=== PATIENT | female | born 1990 | race Two or more races ===

== ENCOUNTER 2016-09-08 19:33 | Emergency (ER) | payer MEDICAID ==
[~2016-09-08] VITALS: Ht 160 cm; Wt 103.0 kg
[~2016-09-08 19:33] MED LIST: ALBUTEROL SULF8.5 GM INH; AZITHROMYCIN250 MG PO; CIPROFLOXACIN500 M2 ORAL; DIPHENHYDRAMINE25 M1 ORAL; DOXYCYCLINE MO100 MG ORAL; KEFLEX500 MG ORAL; MACROBID100 MG ORAL; NKM; ONDANSETRON ODT4 MG ORAL; PREDNISONE20 MG ORAL; PROMETHAZINE-C118 M1 ORAL; PROMETHAZINE-D118 ML PO; ZITHROMAX250 MG ORAL; ZOFRAN4 MG ORAL
[2016-09-08 20:51] LABS: APPEARANCE,URINE CLEAR; KETONES,URINE NEGATIVE (NEGATIVE); LEUKOCYTE ESTERASE ,URINE 3+ (NEGATIVE); NITRITE,URINE NEGATIVE (NEGATIVE); PH,URINE 8 (4.5-8.0); PROTEIN,URINE NEGATIVE (NEGATIVE); UROBILINOGEN,URINE NORMAL MG/DL (0.0-1.0)
[2016-09-08 21:02] LABS: AMORPHOUS SEDIMENT,UR FEW /LPF; BACTERIA,URINE FEW /HPF; SQUAMOUS EPITHELIAL CELL,UR MODERATE /LPF (NONE/OCC)
[2016-09-08 21:30] VITALS: BP 124/76
[2016-09-08] MEDS ORDERED: FLUCONAZOLE150 MG ORAL (21:31)
[2016-09-08 21:35] VITALS: BP 124/76
--- NOTE | 2016-09-08 23:02 | Emergency Room Report ---
History of Present Illness General Chief Complaint: Female Urogenital Problems Source: Patient Present Illness HPI The pt is a 26 yo F presenting for 3 days of vaginal irritation. The pt describes sensation as itching and burning. The pt has had multiple yeast infections in the past and this feels the same. The pt used monostat at home without relief. THe pt describes pain as a 7/10 burning to the vaginal area and does not radiate. Pt denies dysuria, vaginal DC, flank pain, abd pain, N, V, F, chills Allergies: Coded Allergies: No Known Allergies (Unverified , 02/02/13) Patient History Past Medical History: see triage record Pertinent Family History: none Last Menstrual Period: 08/11/2016 Now: No : 3 Para: 2 Reviewed Nursing Documentation: PMH: Agreed, PSxH: Agreed Nursing Documentation-PMH Past Medical History: No Stated History Review of Systems All Other Systems: negative except mentioned in HPI Physical Exam Vital Signs Date Time Temp Pulse Resp B/P Pulse Ox O2 Delivery O2 Flow Rate FiO2 09/08/16 19:43 97.9 80 16 120/80 100 Room Air Sp02 EP Interpretation: reviewed, normal General Appearance: no apparent distress, alert, GCS 15, non-toxic Head: normocephalic, atraumatic Eyes: bilateral eye PERRL, bilateral eye normal inspection ENT: hearing grossly normal, normal pharynx, no angioedema, normal voice Neck: full range of motion, supple/symm/no masses Respiratory: chest non-tender, lungs clear, normal breath sounds, speaking full sentences Gastrointestinal: normal bowel sounds, non tender, soft, non-distended, no guarding, no rebound Genitourinary: normal inspection, no CVA tenderness Neurologic: normal inspection, alert, oriented x3, responsive, sensory intact, normal gait Psychiatric: judgement/insight normal, memory normal, mood/affect normal, no suicidal/homicidal ideation Skin: normal color, no rash, warm/dry, well hydrated Lymphatic: no adenopathy Medical Decision Making PA Attestation Dr. Gomez is my supervising physician. Patient management was discussed with my supervising physician Diagnostic Impression: Primary Impression: Vaginal yeast infection ER Course The pt is a 26 yo F presenting for 3 days of vaginal irritation. Differential diagnosis considered but not limited to: UTI, vaginitis, pyelonephritis, pyelonephrosis, PID, ectopic PE: Vitals WNL. NAD. Abdomen: Normal appearance. Non distended. No ecchymosis. Normal BS. Non TTP. No McBurney point tenderness. No guarding. No CVA tenderness UA shows 5+ occult blood consistent with menstruation. 3+ leukocyte esterase. Few bacteria, negative nitrites. Few WBCs Neg preg Due to the recurrent yeast infection, The pt will be placed on fluconazole for one week and needs to FU with PMD as well as OBGYN. ER precautions given Laboratory Tests Test 09/08/16 20:32 Urine Color Pale yellow Urine Appearance Clear Urine pH 8 (4.5-8.0) Urine Specific [place] 1.015 (1.005-1.035) Urine Protein Negative (NEGATIVE) Urine Glucose (UA) Negative (NEGATIVE) Urine Ketones Negative (NEGATIVE) Urine Occult Blood 5+ (NEGATIVE) H Urine Nitrite Negative (NEGATIVE) Urine Bilirubin Negative (NEGATIVE) Urine Urobilinogen Normal MG/DL (0.0-1.0) Urine Leukocyte Esterase 3+ (NEGATIVE) H Urine RBC 10-15 /HPF (0 - 2) H Urine WBC 2-4 /HPF (0 - 2) Urine Squamous Epithelial Cells Moderate /LPF (NONE/OCC) H Urine Amorphous Sediment Few /LPF (NONE) H Urine Bacteria Few /HPF (NONE) Urine HCG, Qualitative Negative Lab Results Impression UA shows 5+ occult blood consistent with menstruation. 3+ leukocyte esterase. Few bacteria, negative nitrites. Few WBCs Last Vital Signs Date Time Temp Pulse Resp B/P Pulse Ox O2 Delivery O2 Flow Rate FiO2 09/08/16 21:35 97.9 16 124/76 100 Room Air 09/08/16 21:30 72 Status: improved Disposition: HOME, SELF-CARE Condition: Improved Scripts Fluconazole (FLUCONAZOLE) 150 Mg Tablet 150 MG ORAL DAILY, #7 TAB 0 Refills Prov: SHIRA ROSS P.A. 09/08/16 Patient Instructions: Vaginal Yeast Infection, Adult Additional Instructions: I discussed my findings with the patient. All questions and concerns have been answered. Treatment and medication compliance have been addressed. I advised the patient that they need to follow up with PMD in 3-5 days. Return to ED if symptoms worsen, new symptoms arise, or if needed for any reason. Patient verbalized understanding of discharge instructions. SHIRA ROSS Sep 08, 2016 23:02
== END 2016-09-08 21:35 | disposition home or self-care (01) ==
LOC: EMR 19:58
DX: B37.9 Candidiasis, unspecified (principal)
CPT/HCPCS: 81003; 81025; 99283

== ENCOUNTER 2017-02-23 20:01 | Emergency (ER) | payer MEDICAID ==
[~2017-02-23] VITALS: Ht 157.5 cm; Wt 100.7 kg
[~2017-02-23 20:01] MED LIST changes: +FLUCONAZOLE150 MG ORAL
[2017-02-23 20:51] VITALS: BP 107/72
[2017-02-23 21:42] LABS: APPEARANCE,URINE CLEAR; KETONES,URINE NEGATIVE (NEGATIVE); LEUKOCYTE ESTERASE ,URINE 3+ (NEGATIVE); NITRITE,URINE NEGATIVE (NEGATIVE); PH,URINE 6.5 (4.5-8.0); PROTEIN,URINE NEGATIVE (NEGATIVE); UROBILINOGEN,URINE 1 MG/DL (0.0-1.0)
[2017-02-23 21:49] LABS: BACTERIA,URINE FEW /HPF; SQUAMOUS EPITHELIAL CELL,UR FEW /LPF (NONE/OCC)
[2017-02-23] MEDS ORDERED: FLUCONAZOLE100 MG ORAL (22:00)
[2017-02-23] MEDS ORDERED: NITROFURANTOIN100 M2 ORAL (22:00)
[2017-02-23] MEDS ORDERED: Fluconazole 100mg tab ORAL ONE (22:00)
--- NOTE | 2017-02-23 22:00 | Emergency Room Report ---
History of Present Illness General Chief Complaint: Female Urogenital Problems Source: Patient Present Illness HPI 26 YO Female presents to the ED C/O presents to the ED c/o vaginal irritation/ discomfort and malodor, x 3 days. Pt. has hx of yeast infection and bv in the past. denies recent abx use. Denies recent unprotected intercourse, , malodor, swollen palpable lymph nodes, abdominal pain, nausea, vomiting, fevers , chills , rashes , dysuria, hematuria. Denies CP, Palpitations, LOC, AMS, dizziness, Changes in Vision, Sensation, paresthesias, or a sudden severe headache. Allergies: Coded Allergies: No Known Allergies (Unverified , 02/02/13) Patient History Past Medical History: see triage record Past Surgical History: none Pertinent Family History: none Last Menstrual Period: January 13, 2017 Now: No : 3 Para: 2 Reviewed Nursing Documentation: PMH: Agreed, PSxH: Agreed Nursing Documentation-PMH Past Medical History: No Stated History Review of Systems All Other Systems: negative except mentioned in HPI Physical Exam Vital Signs Date Time Temp Pulse Resp B/P (MAP) Pulse Ox O2 Delivery O2 Flow Rate FiO2 02/23/17 20:22 98.4 90 18 107/72 98 Room Air Sp02 EP Interpretation: reviewed, normal General Appearance: no apparent distress, alert, GCS 15, non-toxic Head: normocephalic, atraumatic Eyes: bilateral eye normal inspection, bilateral eye PERRL ENT: hearing grossly normal, normal voice Neck: full range of motion Respiratory: lungs clear, normal breath sounds, speaking full sentences Cardiovascular #1: regular rate, rhythm Gastrointestinal: normal bowel sounds, non tender, soft, no guarding, no rebound Rectal: deferred Genitourinary: normal inspection, no CVA tenderness, adnexa normal, cervix normal, ext genitalia/vag normal, os closed, other - negative CMT, yellow/white milky d/c noted. Musculoskeletal: back normal, gait/station normal, normal range of motion, non- tender Neurologic: alert, oriented x3, responsive, motor strength/tone normal, sensory intact, speech normal Psychiatric: judgement/insight normal, memory normal, mood/affect normal Skin: normal color, no rash, warm/dry, well hydrated Lymphatic: no adenopathy Medical Decision Making PA Attestation Dr. Dominique is my supervising Physician whom patient management has been discussed with. Diagnostic Impression: Primary Impression: UTI Additional Impressions: Vaginitis Qualified Codes: N76.0 - Acute vaginitis Bacterial vaginosis ER Course P26 YO Female presents to the ED C/O presents to the ED c/o vaginal irritation/ discomfort and malodor, x 3 days. Pt. has hx of yeast infection and bv in the past. denies recent abx use. Denies recent unprotected intercourse, , malodor, swollen palpable lymph nodes, abdominal pain, nausea, vomiting, fevers , chills , rashes , dysuria, hematuria. Denies CP, Palpitations, LOC, AMS, dizziness, Changes in Vision, Sensation, paresthesias, or a sudden severe headache. Ddx considered but are not limited to UTi , Pyelo, STI, Stone, Cystitis, vaginal laceration, vaginitis. Vital signs: are WNL, pt. is afebrile H& PE are most consistent with: vaginitis ORDERS: - UA labs are attached : moderate bacteria with elevated leukocytes indicating UTI. - WET MOUNT: few clue, few yeast, few bacteria, no trich ED INTERVENTIONS: -Diflucan PO DISCHARGE: At this time pt. is stable for d/c to home. Will provide printed patient care instructions, and any necessary prescriptions. Care plan and follow up instructions have been discussed with the patient prior to discharge. Labs Test 02/23/17 20:34 Urine Color Pale yellow Urine Appearance Clear Urine pH 6.5 (4.5-8.0) Urine Specific [place] 1.015 (1.005-1.035) Urine Protein Negative (NEGATIVE) Urine Glucose (UA) Negative (NEGATIVE) Urine Ketones Negative (NEGATIVE) Urine Occult Blood 1+ (NEGATIVE) Urine Nitrite Negative (NEGATIVE) Urine Bilirubin Negative (NEGATIVE) Urine Urobilinogen 1 MG/DL (0.0-1.0) Urine Leukocyte Esterase 3+ (NEGATIVE) Urine RBC 2-4 /HPF (0 - 2) Urine WBC 5-10 /HPF (0 - 2) Urine Squamous Epithelial Cells Few /LPF (NONE/OCC) Urine Bacteria Few /HPF (NONE) Last Vital Signs Date Time Temp Pulse Resp B/P (MAP) Pulse Ox O2 Delivery O2 Flow Rate FiO2 02/23/17 20:22 98.4 90 18 107/72 98 Room Air Disposition: HOME, SELF-CARE Condition: Stable Scripts Metronidazole* (FLAGYL*) 500 Mg Tablet 500 MG ORAL BID for 7 Days, #14 TAB 0 Refills Prov: Daniella Lange 02/23/17 Fluconazole (FLUCONAZOLE) 100 Mg Tablet 100 MG ORAL DAILY, #3 TAB 0 Refills Prov: Daniella Lange 02/23/17 Nitrofurantoin Monohyd/M-Cryst* (MACROBID 100 MG*) 100 Mg Capsule 100 MG ORAL EVERY 12 HOURS for 5 Days, #10 CAP Prov: Daniella Lange 02/23/17 Referrals: NON PHYSICIAN (PCP) Patient Instructions: Vaginitis, Urinary Tract Infection Additional Instructions: Take medications as directed. Follow up with a Primary Care Provider in 3-5 days, even if your symptoms have resolved. --Please review list of primary care clinics, if you do not already have a primary care provider Return sooner to ED if new symptoms occur, or current symptoms become worse. - Please note that this Emergency Department Report was dictated using [employer] room manager technology software, occasionally this can lead to erroneous entry secondary to interpretation by the dictation equipment. Daniella Lange Feb 23, 2017 21:59
[2017-02-23 22:02] VITALS: BP 112/71
[2017-02-23 22:07] VITALS: BP 112/71
[2017-02-23] MEDS ORDERED: METRONIDAZOLE500 MG ORAL (22:27)
[2017-02-25] MEDS ORDERED: METRONIDAZOLE500 MG ORAL (18:17)
== END 2017-02-23 22:07 | disposition home or self-care (01) ==
LOC: EMR 20:40
DX: N39.0 Urinary tract infection, site not specified (principal); N76.0 Acute vaginitis
CPT/HCPCS: 81003; 87210; 99284

== ENCOUNTER 2017-03-11 00:36 | Emergency (ER) | payer MEDICAID ==
[~2017-03-11] VITALS: Ht 157.5 cm; Wt 101.2 kg
[~2017-03-11 00:36] MED LIST changes: +FLUCONAZOLE100 MG ORAL; +METRONIDAZOLE500 MG ORAL; +NITROFURANTOIN100 M2 ORAL
[2017-03-11 00:54] VITALS: BP 119/73
[2017-03-11] MEDS ORDERED: NEXAFED30 MG ORAL (01:07)
[2017-03-11] MEDS ORDERED: IBUPROFEN600 MG ORAL (01:07)
--- NOTE | 2017-03-11 01:08 | Emergency Room Report ---
History of Present Illness General Chief Complaint: Sore Throat Source: Patient Present Illness HPI Is a 26-year-old female with no significant past medical history. She presents with chief complaint of congestion, cough, sore throat, ear pain. Onset yesterday. No nausea no vomiting. Has not take any medicine for pain is 9/10. Worse with swallowing. Worse with blow her nose. Allergies: Coded Allergies: No Known Allergies (Unverified , 02/02/13) Patient History Past Medical History: see triage record, old chart reviewed Past Surgical History: none Pertinent Family History: none Social History: Denies: smoking Last Menstrual Period: 03/02/17 Now: No Immunizations: other Reviewed Nursing Documentation: PMH: Agreed, PSxH: Agreed Nursing Documentation-PMH Past Medical History: No Stated History Review of Systems Eye: Denies: eye pain, blurred vision ENT: Reports: ear pain, nose congestion, throat pain, Denies: throat swelling Respiratory: Reports: cough, Denies: shortness of breath Cardiovascular: Denies: chest pain, palpitations Gastrointestinal: Denies: abdominal pain, diarrhea, nausea, vomiting Musculoskeletal: Denies: back pain, joint pain Skin: Denies: rash Neurological: Denies: headache, numbness Endocrine: Denies: increased thirst, increased urine Hematologic/Lymphatic: Denies: easy bruising All Other Systems: negative except mentioned in HPI Physical Exam Vital Signs Date Time Temp Pulse Resp B/P (MAP) Pulse Ox O2 Delivery O2 Flow Rate FiO2 03/11/17 00:44 97.9 99 16 119/73 98 Room Air vitals normal Sp02 EP Interpretation: reviewed, normal General Appearance: well appearing, no apparent distress, alert Head: normocephalic, atraumatic Eyes: bilateral eye PERRL, bilateral eye EOMI ENT: hearing grossly normal, normal pharynx, uvula midline, tonsillar swelling , other - Bilateral TMs with fluid Neck: full range of motion, supple, no meningismus Respiratory: chest non-tender, lungs clear, normal breath sounds Cardiovascular #1: regular rate, rhythm, no murmur Gastrointestinal: normal bowel sounds, non tender, no mass, no organomegaly, no bruit, non-distended Musculoskeletal: back normal, gait/station normal, normal range of motion Psychiatric: mood/affect normal Skin: warm/dry Medical Decision Making Diagnostic Impression: Primary Impression: Viral upper respiratory infection ER Course Patient with a viral illness. No evidence of peritonsillar abscess, retropharyngeal abscess or Albino angina. No evidence of otitis media. Last Vital Signs Date Time Temp Pulse Resp B/P (MAP) Pulse Ox O2 Delivery O2 Flow Rate FiO2 03/11/17 00:44 97.9 99 16 119/73 98 Room Air Status: improved Disposition: HOME, SELF-CARE Condition: Stable Scripts Ibuprofen* (MOTRIN*) 600 Mg Tablet 600 MG ORAL THREE TIMES A DAY, #30 TAB 0 Refills Prov: WENDI KILGORE M.D. 03/11/17 Pseudoephedrine Hcl* (NEXAFED*) 30 Mg Tablet 60 MG ORAL Q6H Y for congestion, #30 TAB Prov: WENDI KILGORE M.D. 03/11/17 Additional Instructions: Followup with your DrDino in 2-3 days. Return if symptom worsen. Increase fluid. Nathaniel granados. WENDI KILGORE M.D. Mar 11, 2017 01:08
[2017-03-11] MEDS ORDERED: Norco 5mg/325mg tab ORAL ONE (01:15)
[2017-03-11 01:18] VITALS: BP 125/78
== END 2017-03-11 01:19 | disposition home or self-care (01) ==
LOC: EMR 00:55
DX: J98.8 Other specified respiratory disorders (principal)
CPT/HCPCS: 99284

== ENCOUNTER 2017-04-29 00:22 | Emergency (ER) | payer MEDICAID ==
[~2017-04-29] VITALS: Ht 160 cm; Wt 107.5 kg
[~2017-04-29 00:22] MED LIST changes: +IBUPROFEN600 MG ORAL; +NEXAFED30 MG ORAL
[2017-04-29] MEDS ORDERED: NKM (00:42)
[2017-04-29 01:22] LABS: APPEARANCE,URINE CLEAR; KETONES,URINE NEGATIVE (NEGATIVE); NITRITE,URINE NEGATIVE (NEGATIVE); PH,URINE 6 (4.5-8.0); PROTEIN,URINE NEGATIVE (NEGATIVE); UROBILINOGEN,URINE NORMAL MG/DL (0.0-1.0)
[2017-04-29 01:31] LABS: LEUKOCYTE ESTERASE ,URINE 1+ (NEGATIVE)
[2017-04-29 01:32] LABS: RBC,URINE 0-2 /HPF (0 - 2); SQUAMOUS EPITHELIAL CELL,UR MODERATE /LPF (NONE/OCC)
[2017-04-29 01:40] VITALS: BP 148/68
--- NOTE | 2017-04-29 02:55 | Emergency Room Report ---
History of Present Illness General Chief Complaint: Female Urogenital Problems Source: Patient Present Illness HPI Patient presents with vaginal d/c. There is some external burning when she urinates also. The d/c is white. No fevers. She denies DM. She's been treated for yeast in the past. No treatment for this. She is late for her period. Denies abdominal pain. No breast tenderness. Some morning nausea, no vomiting. one miscarriage which went poorly Allergies: Coded Allergies: No Known Allergies (Unverified , 02/02/13) Patient History Past Medical History: see triage record Social History: Denies: smoking Social History Narrative [facility] caregiver Last Menstrual Period: mar 24, 2017 Now: No - see results : 4 - with this Para: 2 Nursing Documentation-PMH Past Medical History: No Stated History Review of Systems All Other Systems: negative except mentioned in HPI Physical Exam Vital Signs Date Time Temp Pulse Resp B/P (MAP) Pulse Ox O2 Delivery O2 Flow Rate FiO2 04/29/17 00:38 98.1 84 16 115/75 100 Room Air Sp02 EP Interpretation: reviewed, normal General Appearance: well appearing, no apparent distress, GCS 15 Head: normocephalic Eyes: bilateral eye normal inspection, bilateral eye PERRL ENT: moist mucus membranes Neck: supple Respiratory: lungs clear, normal breath sounds Cardiovascular #1: regular rate, rhythm Cardiovascular #2: 2+ radial (R) Gastrointestinal: normal inspection, normal bowel sounds, non tender, no mass, non-distended, overweight Genitourinary: adnexa normal, cervix normal - with eversion, os closed, uterus normal, other - white d/c Musculoskeletal: back normal, gait/station normal, normal range of motion Neurologic: alert, oriented x3, grossly normal Psychiatric: mood/affect normal Skin: normal inspection, warm/dry Medical Decision Making Diagnostic Impression: Primary Impression: Vaginal yeast infection Additional Impression: Early stage of ER Course Patient late for period with d/c. Ddx; , yeast, vaginitis, UTI amongst others. Eval with pelvic, w/m, UA and preg. Exam c/w yeast. W/M "neg". UA + preg. No UTI. Discussed findings with patient. Patient stable for outpatient observation and treatment. Laboratory Tests Test 04/29/17 00:45 Urine Color Pale yellow Urine Appearance Clear Urine pH 6 (4.5-8.0) Urine Specific [place] 1.025 (1.005-1.035) Urine Protein Negative (NEGATIVE) Urine Glucose (UA) Negative (NEGATIVE) Urine Ketones Negative (NEGATIVE) Urine Occult Blood Negative (NEGATIVE) Urine Nitrite Negative (NEGATIVE) Urine Bilirubin Negative (NEGATIVE) Urine Urobilinogen Normal MG/DL (0.0-1.0) Urine Leukocyte Esterase 1+ (NEGATIVE) H Urine RBC 0-2 /HPF (0 - 2) Urine WBC 2-4 /HPF (0 - 2) Urine Squamous Epithelial Cells Moderate /LPF (NONE/OCC) H Urine Bacteria None /HPF (NONE) Urine HCG, Qualitative Positive Chlamydia trachomatis RNA Pending Neisseria gonorrhoeae RNA Pending Microbiology Date/Time Source Procedure Growth Status 04/29/17 02:50 Vaginal Wet Prep - Final Complete Last Vital Signs Date Time Temp Pulse Resp B/P (MAP) Pulse Ox O2 Delivery O2 Flow Rate FiO2 04/29/17 03:50 98.0 80 16 136/70 100 Room Air Status: improved Disposition: HOME, SELF-CARE Condition: Improved Scripts Vit #113/Iron/Folate ( CHEWABLE TAB) 1 Each Tab.chew 1 EACH PO DAILY, #30 TAB Prov: Sumeet Armstrong M.D. 04/29/17 Diphenhydramine Hcl* (BENADRYL*) 25 Mg Capsule 25 MG ORAL Q6H Y for Itching, #14 CAP 1 Refill Prov: Sumeet Armstrong M.D. 04/29/17 Clotrimazole (GYNE-LOTRIMIN*) 45 Gm Cream.appl 1 APPLIC VG QHS, #45 GM 0 Refills Prov: Sumeet Armstrong M.D. 04/29/17 Referrals: NON PHYSICIAN (PCP) Sumeet Armstrong M.D. Apr 29, 2017 02:54
[2017-04-29 03:30] VITALS: BP 136/70
[2017-04-29] MEDS ORDERED: GYNE-LOTRIMIN45 GM VG (03:32)
[2017-04-29] MEDS ORDERED: BENADRYL25 MG ORAL (03:32)
[2017-04-29 03:50] VITALS: BP 136/70
== END 2017-04-29 03:50 | disposition home or self-care (01) ==
LOC: EMR 00:25
DX: O98.819 Other maternal infectious and parasitic diseases complicating pregnancy, unspecified trimester (principal); B37.3 Candidiasis of vulva and vagina; N89.8 Other specified noninflammatory disorders of vagina
CPT/HCPCS: 81003; 81025; 87210; 87491; 87590; 99284

== ENCOUNTER 2017-05-05 15:12 | Emergency (ER) | payer MEDICAID ==
[~2017-05-05] VITALS: Ht 160 cm; Wt 72.6 kg
[~2017-05-05 15:12] MED LIST changes: +BENADRYL25 MG ORAL; +GYNE-LOTRIMIN45 GM VG
[2017-05-05 16:07] LABS: APPEARANCE,URINE CLEAR; KETONES,URINE 3+ (NEGATIVE); LEUKOCYTE ESTERASE ,URINE 3+ (NEGATIVE); NITRITE,URINE NEGATIVE (NEGATIVE); PH,URINE 6.5 (4.5-8.0); PROTEIN,URINE NEGATIVE (NEGATIVE); UROBILINOGEN,URINE 1 MG/DL (0.0-1.0)
[2017-05-05 16:26] LABS: SQUAMOUS EPITHELIAL CELL,UR FEW /LPF (NONE/OCC); YEAST,URINE FEW /HPF
[2017-05-05 16:27] LABS: BACTERIA,URINE FEW /HPF; RBC,URINE 0-2 /HPF (0 - 2)
[2017-05-05 17:42] LABS: ANION GAP 10 mmol/L (5-15); CARBON DIOXIDE 26 MMOL/L (21-32); CHLORIDE 103 MMOL/L (98-107); CREATININE 0.6 MG/DL (0.55-1.30); GLOMERULAR FILTRATION RATE > 60 mL/min (>60); POTASSIUM 3.8 MMOL/L (3.5-5.1); SODIUM 139 MMOL/L (136-145)
[2017-05-05 17:45] VITALS: BP 118/60
[2017-05-05 17:47] LABS: ALANINE AMINOTRANSFERASE 29 U/L (12-78); ALBUMIN/GLOBULIN RATIO 0.9 (1.0-2.7); ASPARTATE AMINO TRANSFERASE 13 U/L (15-37); LIPASE 73 U/L (73-393); TOTAL PROTEIN 7.6 G/DL (6.4-8.2)
[2017-05-05 18:05] LABS: EOSINOPHILS % (AUTO) 1.2 % (0.0-3.0); LYMPHOCYTES % (AUTO) 24.2 % (20.0-45.0); MEAN CORPUSCULAR HEMOGLOBIN 28.5 PG (27.0-31.0); MEAN CORPUSCULAR HGB CONC 32.6 G/DL (32.0-36.0); MEAN CORPUSCULAR VOLUME 87 FL (80-99); MONOCYTES % (AUTO) 7.5 % (1.0-10.0); NEUTROPHILS % (AUTO) 66.1 % (45.0-75.0); PLATELET COUNT 249 K/UL (150-450); RED BLOOD COUNT 4.73 M/UL (4.20-5.40); RED CELL DISTRIBUTION WIDTH 12.4 % (11.6-14.8)
[2017-05-05 19:45] VITALS: BP 112/68
--- NOTE | 2017-05-05 19:49 | Emergency Room Report ---
History of Present Illness General Chief Complaint: Abdominal Pain Source: Patient Present Illness HPI The patient is in very early first trimester. She is unsure on her dates. She states she found out she was one week ago here at [facility] when she came in for a yeast infection. She states that she's noticed for the past week that she has had nausea, vomiting and epigastric pain. She denies fever or chills. She denies vaginal bleeding. She denies pelvic pain or cramping. She has no other complaints. Allergies: Coded Allergies: No Known Allergies (Unverified , 02/02/13) Patient History Past Medical History: none, see triage record Social History: Denies: smoking, alcohol use, drug use Now: Yes Reviewed Nursing Documentation: PMH: Agreed, PSxH: Agreed Nursing Documentation-PMH Past Medical History: No Stated History Review of Systems All Other Systems: negative except mentioned in HPI Physical Exam Vital Signs Date Time Temp Pulse Resp B/P (MAP) Pulse Ox O2 Delivery O2 Flow Rate FiO2 05/05/17 15:20 98.1 78 16 121/58 98 Room Air Sp02 EP Interpretation: reviewed, normal General Appearance: no apparent distress, alert, GCS 15, non-toxic Head: normocephalic, atraumatic Eyes: bilateral eye normal inspection, bilateral eye PERRL ENT: hearing grossly normal, normal pharynx, no angioedema, normal voice Neck: full range of motion, supple/symm/no masses Respiratory: chest non-tender, lungs clear, normal breath sounds, speaking full sentences Cardiovascular #1: regular rate, rhythm, no edema Gastrointestinal: normal bowel sounds, non tender, soft, non-distended, no guarding, no rebound Rectal: deferred Musculoskeletal: back normal, gait/station normal, normal range of motion, non- tender Neurologic: alert, oriented x3, responsive, motor strength/tone normal, sensory intact, speech normal Psychiatric: judgement/insight normal, memory normal, mood/affect normal, no suicidal/homicidal ideation Skin: normal color, no rash, warm/dry, well hydrated Medical Decision Making Diagnostic Impression: Primary Impression: Nausea and vomiting during Additional Impression: Acute gastritis ER Course This patient has nausea and vomiting of early . She also likely has a component of gastritis. She underwent OB ultrasound and was found to have a 6 week intrauterine with heart sounds. She also underwent ultrasound of the right upper quadrant and there is no evidence of gallstones or cholecystitis. Laboratory workup was noncontributory and unremarkable. Specifically no evidence of pancreatitis or hepatitis. The patient also had nausea and vomiting of early and her other pregnancies. I did educate the patient that she could have Zofran and I educated her about the black box warning to include cardiac abnormalities in the fetus. She indicated understanding. She states that she did have Zofran with her previous pregnancies and she would like this to attempt to help the knees the symptoms. I will also start the patient on Zantac. Patient was also educated on eating small snacks and using roxana. The patient was given close return precautions and followup instructions. Laboratory Tests Test 05/05/17 15:39 05/05/17 17:11 Urine Color Yellow Urine Appearance Clear Urine pH 6.5 (4.5-8.0) Urine Specific [place] 1.020 (1.005-1.035) Urine Protein Negative (NEGATIVE) Urine Glucose (UA) Negative (NEGATIVE) Urine Ketones 3+ (NEGATIVE) H Urine Occult Blood 1+ (NEGATIVE) H Urine Nitrite Negative (NEGATIVE) Urine Bilirubin Negative (NEGATIVE) Urine Urobilinogen 1 MG/DL (0.0-1.0) H Urine Leukocyte Esterase 3+ (NEGATIVE) H Urine RBC 0-2 /HPF (0 - 2) Urine WBC 2-4 /HPF (0 - 2) Urine Squamous Epithelial Cells Few /LPF (NONE/OCC) Urine Bacteria Few /HPF (NONE) Urine Yeast Few /HPF (NONE) H White Blood Count 8.0 K/UL (4.8-10.8) Red Blood Count 4.73 M/UL (4.20-5.40) Hemoglobin 13.5 G/DL (12.0-16.0) Hematocrit 41.4 % (37.0-47.0) Mean Corpuscular Volume 87 FL (80-99) Mean Corpuscular Hemoglobin 28.5 PG (27.0-31.0) Mean Corpuscular Hemoglobin Concent 32.6 G/DL (32.0-36.0) Red Cell Distribution Width 12.4 % (11.6-14.8) Platelet Count 249 K/UL (150-450) Mean Platelet Volume 8.0 FL (6.5-10.1) Neutrophils (%) (Auto) 66.1 % (45.0-75.0) Lymphocytes (%) (Auto) 24.2 % (20.0-45.0) Monocytes (%) (Auto) 7.5 % (1.0-10.0) Eosinophils (%) (Auto) 1.2 % (0.0-3.0) Basophils (%) (Auto) 1.0 % (0.0-2.0) Sodium Level 139 MMOL/L (136-145) Potassium Level 3.8 MMOL/L (3.5-5.1) Chloride Level 103 MMOL/L (98-107) Carbon Dioxide Level 26 MMOL/L (21-32) Anion Gap 10 mmol/L (5-15) Blood Urea Nitrogen 10 mg/dL (7-18) Creatinine 0.6 MG/DL (0.55-1.30) Estimate Glomerular Filtration Rate > 60 mL/min (>60) Glucose Level 94 MG/DL (74-106) Calcium Level 9.0 MG/DL (8.5-10.1) Total Bilirubin 0.4 MG/DL (0.2-1.0) Aspartate Amino Transferase (AST) 13 U/L (15-37) L Alanine Aminotransferase (ALT) 29 U/L (12-78) Alkaline Phosphatase 71 U/L (46-116) Total Protein 7.6 G/DL (6.4-8.2) Albumin 3.5 G/DL (3.4-5.0) Globulin 4.1 g/dL Albumin/Globulin Ratio 0.9 (1.0-2.7) L Lipase 73 U/L (73-393) Human Chorionic Gonadotropin, Quant 27840 mIU/mL (1-6) H CT/MRI/US Diagnostic Results CT/MRI/US Diagnostic Results : Imaging Test Ordered: OB US, RUQ US: Impression OB ultrasound: Six-week intrauterine with heart tones. See official result. Right upper quadrant US: The liver normal gallbladder. See official result. Last Vital Signs Date Time Temp Pulse Resp B/P (MAP) Pulse Ox O2 Delivery O2 Flow Rate FiO2 05/05/17 17:45 98.1 68 16 118/60 98 Room Air Status: improved Disposition: HOME, SELF-CARE Condition: Improved Referrals: NON PHYSICIAN (PCP) PARAS UMANZOR D.O. May 05, 2017 19:48
[2017-05-05] MEDS ORDERED: ZOFRAN ODT4 MG ORAL (20:14)
[2017-05-05] MEDS ORDERED: RANITIDINE HCL150 MG ORAL (20:14)
[2017-05-05 20:26] VITALS: BP 125/68
--- NOTE | 2017-05-06 11:07 | Diagnostic Imaging Report ---
Indication: Abdominal pain x2 days, nausea, vomiting Technique: Mesa-scale and duplex images of the upper abdomen were obtained Comparison: None Findings: Gallbladder is unremarkable, without stones, wall thickening, nor pericholecystic fluid. Sonographic Belcher's sign is negative. Common bile duct measures 5 mm in diameter. No intrahepatic biliary ductal dilatation. Liver demonstrates equivocally slightly increased echogenicity and mild enlargement. Portal vein and hepatic veins are patent. Pancreas is unremarkable. Spleen is unremarkable. Left kidney measures 10.7 cm in length. Right kidney measures 12.9 cm length. Both kidneys demonstrate normal echogenicity. There is no hydronephrosis. No focal abnormality . Non-aneurysmal abdominal aorta . Impression: Equivocal mild hepatomegaly. Equivocal mild increased hepatic echogenicity, if real could indicate hepatocellular disease such as fatty change Negative for gallstones or dilated ducts Note incomplete visualization of the abdominal aorta
--- NOTE | 2017-05-06 11:17 | Diagnostic Imaging Report ---
Indication: PAIN pelvic pain, positive test Technique: Transabdominal and transvaginal images Comparison: None Findings: Uterus measures 9.4 cm length by 5 cm AP. Within the endometrium, there is a gestational sac. This demonstrates a pole with a crown-rump length of 4 mm, corresponding to estimated gestational age of 6 weeks one day. Estimated date of delivery is 12/26/2017. There is positive heart activity, heart rate 113 beats per minute. Yolk sac is demonstrated. No subchorionic hemorrhage is visualized. No myometrial abnormality. No free cul-de-sac fluid. Right ovary measures 3.7 cm length. Left ovary 2.8 cm in length. Normal Doppler flow demonstrated. No adnexal mass. Impression: 6 week one day, by crown-rump length measurement, single live intrauterine . No unusual features
== END 2017-05-05 20:30 | disposition home or self-care (01) ==
LOC: EMR 17:32
DX: O21.9 Vomiting of pregnancy, unspecified (principal); O26.891 Other specified pregnancy related conditions, first trimester; Z3A.01 Less than 8 weeks gestation of pregnancy; K29.00 Acute gastritis without bleeding
CPT/HCPCS: 36415; 76700; 76801; 76830; 80053; 81003; 83690; 84702; 85025; 87086; 96360; 99284

== ENCOUNTER 2017-09-18 21:06 | Emergency (ER) | payer MEDICAID ==
[~2017-09-18] VITALS: Ht 157.5 cm; Wt 110.7 kg
[~2017-09-18 21:06] MED LIST changes: +RANITIDINE HCL150 MG ORAL; +ZOFRAN ODT4 MG ORAL
[2017-09-18] MEDS ORDERED: PRENATAL FORMU1 EAC5 PO (21:13)
--- NOTE | 2017-09-18 21:19 | Emergency Room Report ---
History of Present Illness General Chief Complaint: Female Urogenital Problems Source: Patient Present Illness HPI This is a 27-year-old female who is 4, para 2 who is approximately 25 weeks . She presents with chief complaint of vaginal itching. Onset for the last 2 days. No fever chills. Burning with urination. No nausea vomiting or discharge. History of UTI and yeast infection. No vaginal bleeding. She felt baby moving without any problem. Allergies: Coded Allergies: No Known Allergies (Unverified , 02/02/13) Patient History Past Medical History: see triage record, old chart reviewed Past Surgical History: other Pertinent Family History: none Social History: Denies: smoking Now: Yes : 4 Para: 2 Immunizations: other Reviewed Nursing Documentation: PMH: Agreed; PSxH: Agreed Nursing Documentation-PM Past Medical History: No Stated History Review of Systems Eye: Denies: eye pain, blurred vision ENT: Denies: ear pain, nose congestion, throat swelling Respiratory: Denies: cough, shortness of breath Cardiovascular: Denies: chest pain, palpitations Gastrointestinal: Denies: abdominal pain, diarrhea, nausea, vomiting Genitourinary: Reports: other - Itching Musculoskeletal: Denies: back pain, joint pain Skin: Denies: rash Neurological: Denies: headache, numbness Endocrine: Denies: increased thirst, increased urine Hematologic/Lymphatic: Denies: easy bruising All Other Systems: negative except mentioned in HPI Physical Exam Vital Signs Date Time Temp Pulse Resp B/P (MAP) Pulse Ox O2 Delivery O2 Flow Rate FiO2 09/18/17 21:10 98.2 91 15 109/68 97 Room Air 98.2 vitals normal Sp02 EP Interpretation: reviewed, normal General Appearance: well appearing, no apparent distress, alert Head: normocephalic, atraumatic Eyes: bilateral eye PERRL, bilateral eye EOMI ENT: hearing grossly normal, normal pharynx Neck: full range of motion, supple, no meningismus Respiratory: chest non-tender, lungs clear, normal breath sounds Cardiovascular #1: regular rate, rhythm, no murmur Gastrointestinal: normal bowel sounds, non tender, no mass - Gravid, no organomegaly, no bruit, non-distended Genitourinary: other - Pelvic exam done with ROMÁN Sutherland, as press worker helper. External exam is normal. Internal exam shows whitish discharge. No adnexal tenderness. No cervical motion tenderness. Musculoskeletal: back normal, gait/station normal, normal range of motion Neurologic: alert, oriented x3 Psychiatric: mood/affect normal Skin: warm/dry Medical Decision Making Diagnostic Impression: Primary Impression: Acute urinary tract infection Additional Impression: Vaginitis and vulvovaginitis ER Course Patient with chief complaint of dysuria and itchiness. Urine possible UTI. No evidence of Dr. vaginosis or Trichomonas. No yeast in the wet prep. No evidence of ectopic. No evidence of bleeding. We'll discharge home. Last Vital Signs Date Time Temp Pulse Resp B/P (MAP) Pulse Ox O2 Delivery O2 Flow Rate FiO2 09/18/17 21:10 98.2 91 15 109/68 97 Room Air 98.2 Status: unchanged Disposition: HOME, SELF-CARE Condition: Stable Scripts Nitrofurantoin Monohyd/M-Cryst* (MACROBID 100 MG*) 100 Mg Capsule 100 MG ORAL EVERY 12 HOURS, #14 CAP Prov: WENDI KILGORE M.D. 09/18/17 Patient Instructions: Urinary Tract Infection Additional Instructions: Follow-up with your doctor in 7 days. Return if worse. WENDI KILGORE M.D. Sep 18, 2017 21:19
[2017-09-18 21:34] VITALS: BP 109/68
[2017-09-18 21:51] LABS: APPEARANCE,URINE SLIGHTLY CLOUDY; BILIRUBIN, URINE NEGATIVE (NEGATIVE); COLOR,URINE PALE YELLOW; GLUCOSE, URINE (UA) NEGATIVE (NEGATIVE); KETONES,URINE NEGATIVE (NEGATIVE); LEUKOCYTE ESTERASE ,URINE 3+ (NEGATIVE); NITRITE,URINE NEGATIVE (NEGATIVE); PH,URINE 8 (4.5-8.0); PROTEIN,URINE NEGATIVE (NEGATIVE); UROBILINOGEN,URINE 1 MG/DL (0.0-1.0)
[2017-09-18] MEDS ORDERED: NITROFURANTOIN100 M2 ORAL (22:07)
[2017-09-18 22:15] VITALS: BP 109/68
== END 2017-09-18 22:15 | disposition home or self-care (01) ==
LOC: EMR 21:35
DX: O23.42 Unspecified infection of urinary tract in pregnancy, second trimester (principal); O23.592 Infection of other part of genital tract in pregnancy, second trimester; N76.0 Acute vaginitis; Z3A.25 25 weeks gestation of pregnancy
CPT/HCPCS: 81003; 87210; 99283